=== PATIENT | female | born 1980 | race Caucasian/White ===

== ENCOUNTER 2017-03-29 17:19 | Emergency (ER) | payer SELFPAY ==
--- NOTE | 2017-03-29 18:07 | ER Document Report ---
HPI - HPI Patient complains to provider of: Toe infection Onset: Last week Onset/Duration: Gradual Quality of pain: Achy Pain Level: 2 Context: Patient presents complaining of ingrown toenail with infection for the past week. Patient states she used a metal tool and a needle to try to fix the toe. Patient denies any fever. Associated Symptoms: Other - Right great toe pain Exacerbated by: Standing, Movement, Walking Relieved by: Denies Similar symptoms previously: Yes Recently seen / treated by doctor: No - ROS ROS below otherwise negative: Yes Systems Reviewed and Negative: Yes All other systems reviewed and negative - CONSTITUTIONAL Constitutional: DENIES: Fever, Chills - MUSCULOSKELETAL Musculoskeletal: REPORTS: Extremity pain, Swelling Past Medical History - General Information source: Patient - Social History Smoking Status: Current Every Day Smoker Smoking Education Provided: Yes Frequency of alcohol use: Occasional Drug Abuse: None Occupation: None Lives with: Family Family History: Reviewed & Not Pertinent - Medical History Medical History: Negative Surgical Hx: Negative Vertical Provider Document - CONSTITUTIONAL Agree With Documented VS: Yes Exam Limitations: No Limitations General Appearance: WD/WN, No Apparent Distress - INFECTION CONTROL TRAVEL OUTSIDE OF THE [place] IN LAST 30 DAYS: No - HEENT HEENT: Atraumatic, Normocephalic - NECK Neck: Normal Inspection - RESPIRATORY Respiratory: No Respiratory Distress O2 Sat by Pulse Oximetry: 100 - CARDIOVASCULAR Pulses: Normal: Dorsalis pedis - BACK Back: Normal Inspection - MUSCULOSKELETAL/EXTREMETIES Musculoskeletal/Extremeties: MAEW, Tender - Right great toe erythema along lateral margin with purulent exudate with 1+ edema, Edema - NEURO Level of Consciousness: Awake, Alert, Appropriate Motor/Sensory: No Motor Deficit - DERM Integumentary: Warm, Dry Course - Re-evaluation Re-evalutation: 03/29/17 18:50 Controlled substance database reviewed - Vital Signs Vital signs: Temp Pulse Resp BP Pulse Ox 98.7 F 75 16 126/81 H 100 03/29/17 17:25 03/29/17 17:25 03/29/17 17:25 03/29/17 17:25 03/29/17 17:25 - Diagnostic Test Radiology reviewed: Image reviewed, Reports reviewed Discharge - Discharge Clinical Impression: Paronychia of toe Qualifiers: Laterality: right Qualified Code(s): L03.031 - Cellulitis of right toe Condition: Stable Disposition: HOME, SELF-CARE Instructions: Cephalexin ([facility]), Oral Narcotic Medication ([facility]), Paronychia ([facility] ) Additional Instructions: Return immediately for any new or worsening symptoms Followup with your primary care provider, call tomorrow to make a followup appointment Prescriptions: Cephalexin Monohydrate [Keflex 500 mg Capsule] 500 mg PO Q6H 7 Days capsule Hydrocodone/Acetaminophen [Magnolia 5-325 Tablet] 1 each PO Q4 PRN #12 tablet PRN Reason: Naproxen [Naprosyn 250 Nmg Tablet] 1 tab PO BID #14 tablet Referrals: [facility] [Provider Group] - Follow up as needed ARYAN ONEIL DPM [ACTIVE STAFF] - Follow up as needed HARIKA RUSSO DPM [ACTIVE STAFF] - Follow up as needed
--- NOTE | 2017-03-29 18:21 | RADIOLOGY REPORT (SQ) ---
EXAM DESCRIPTION: FOOT RIGHT COMPLETE COMPLETED DATE/TIME: 03/29/2017 6:10 pm REASON FOR STUDY: rt great toe pain COMPARISON: None. NUMBER OF VIEWS: Three views. TECHNIQUE: AP, lateral and oblique without weight bearing radiographic images acquired of the right foot. LIMITATIONS: None. FINDINGS: MINERALIZATION: Normal. BONES: No acute fracture or dislocation. No worrisome bone lesions. No significant osteophytes. No c ortical disruption. JOINTS: No erosions. No jorge-articular osteopenia. No chondrocalcinosis. SOFT TISSUES: No swelling. No calcifications. OTHER: No other significant finding. IMPRESSION: NEGATIVE STUDY OF THE RIGHT FOOT. NO EXPLANATION FOR PAIN. No evidence for osteomyeliti s. TECHNICAL DOCUMENTATION: JOB ID: [id number] [employer]- All Rights Reserved
[2017-03-29] MEDS ORDERED: CEPHALEXIN 500 MG CAPSULE PO ONE (18:41)
[2017-03-29] MEDS ORDERED: IBUPROFEN 800 MG TABLET PO ONE (18:49)
[2017-03-29 19:13] VITALS: BP 138/72
== END 2017-03-29 19:13 | disposition home or self-care (01) ==
LOC: ER 17:19
DX: L03.031 Cellulitis of right toe (principal); F17.200 Nicotine dependence, unspecified, uncomplicated
CPT/HCPCS: 99283

== ENCOUNTER → 2018-10-15 | Outpatient (CLI) | payer SELFPAY ==
--- NOTE | 2018-10-15 14:16 | RADIOLOGY REPORT (SQ) ---
EXAM DESCRIPTION: U/S OB 14+ TRNABD 1GES W/O DOP COMPLETED DATE/TIME: 10/15/2018 2:03 pm REASON FOR STUDY: ENCTR FOR SUPERVISION OF OTHER NORMAL , 2ND TRIMESTER (Z34.82) Z34.82 EN COUNTER FOR SUPRVSN OF NORMAL , SECOND TRI COMPARISON: None. TECHNIQUE: Static and Dynamic grayscale imaging performed of gravid uterus using transabdominal appr oach. Additional selected color Doppler and spectral images recorded. All stored on PACS. LIMITATIONS: None. FINDINGS: FETUSES SEEN:1 EGA: 22 weeks 6 days Calculated using BPD,FL,HC,AC documented on images. No discrepancy with clinica l dates. TIFFANIE: 02/12/2019 EFW: 538 grams +/-80 grams PERCENTILE: 28% ELDA: 7.1 CM LVP PLACENTA: Posterior. PRESENTATION: Cephalic. ANATOMY: HEART RATE: 160 beats per minute. FOUR CHAMBER HEART: Visualized. THREE VESSEL CORD: Yes. CORD INSERTION: Visualized. KIDNEYS AND BLADDER: Visualized. Appear normal. STOMACH: Visualized. Appears normal. SPINE: Normal as visualized. BRAIN AND LATERAL VENTRICLES: Visualized. Appear normal. OTHER: No other significant finding. MATERNAL ADNEXA: Maternal ovaries not visualized. CERVICAL LENGTH: 2.5 cm. Closed. OTHER: No other significant finding. IMPRESSION: LIVING INTRAUTERINE . ESTIMATED GESTATIONAL AGE: 22 weeks 6 days NO VISUALIZED ANOMALIES. Trimester of : Second trimester - 13 weeks 1 day to 27 weeks 6 days. TECHNICAL DOCUMENTATION: JOB ID: [id number] [employer]- All Rights Reserved Reading location - IP/workstation name: [email or web address]
== END ==
LOC: RAD 12:59
PROVIDERS: ATTEND Midwife
DX: Z34.82 Encounter for supervision of other normal pregnancy, second trimester (principal)
CPT/HCPCS: 76805

== ENCOUNTER 2018-12-24 10:38 | Outpatient (CLI) | payer MEDICAID ==
[2018-12-24 12:40] LABS: APPEARANCE,URINE CLEAR; BILIRUBIN,URINE NEGATIVE (NEGATIVE); COLOR,URINE STRAW; GLUCOSE, URINE NEGATIVE (NEGATIVE); KETONES,URINE NEGATIVE (NEGATIVE); LEUKOCYTE ESTERASE,URINE NEGATIVE (NEGATIVE); NITRITE,URINE NEGATIVE (NEGATIVE); PROTEIN,URINE NEGATIVE (NEGATIVE); URINE SPECIFIC GRAVITY 1.003; UROBILINOGEN,URINE NEGATIVE mg/dL (<2.0)
== END 2018-12-24 13:38 | disposition home or self-care (01) ==
LOC: LC 10:38
PROVIDERS: ATTEND Obstetrics & Gynecology
PROC: 4A1HXCZ Monitoring of Products of Conception, Cardiac Rate, External Approach (ICD-10-PCS; principal; 2018-12-24)
DX: O36.8330 Maternal care for abnormalities of the fetal heart rate or rhythm, third trimester, not applicable or unspecified (principal); O09.523 Supervision of elderly multigravida, third trimester; Z3A.33 33 weeks gestation of pregnancy
CPT/HCPCS: 59025; 81001

== ENCOUNTER 2019-01-07 11:34 | Outpatient (CLI) | payer MEDICAID ==
--- NOTE | 2019-01-07 12:16 | Non Stress Test Report ---
Non Stress Test Datetime Report Generated by CPN: 01/07/2019 12:16 DEMOGRAPHIC EGA NST: 35.6 EGA NST: 33.6 INDICATION Indication for Study: Ordered by Provider Indication for Study (NST) Other: AMA Indication for Study (NST) Other: AMA; BRADTCARDIA IN OFFICE MONITORING Monitor Explained: Monitor Explained; Test Explained; Patient Verbalized Understanding Monitor Explained: Monitor Explained; Test Explained; Patient Verbalized Understanding Time on Monitor: 01/07/2019 11:46 Time on Monitor: 12/24/2018 11:04 Time off Monitor: 01/07/2019 12:05 Time off Monitor: 12/24/2018 13:27 NST Duration: 19 NST Duration: 143 NST INTERVENTIONS NST Interventions: None NST Interventions: PO Hydration; Reposition Patient Physician Notified NST: Yuni Arguelles CNM Physician Notified NST: Israel Winston CNM on unit, reviewed fht BABY A: [id number] BABY A Movement : Present Movement : Present Contraction Frequency : Occasional Contraction Frequency : 0 FHR Baseline : 115 FHR Baseline : 115 Accelerations : 15X15 Accelerations : 15X15 Decelerations : None Decelerations : None Variability : Moderate 6-25bpm Variability : Moderate 6-25bpm NST Review: Meets Criteria for Reactive NST NST Review: Meets Criteria for Reactive NST NST Review and Verified By : ROB PERALTA RN NST Review and Verified By : Kizzy Leiva RN NST Results: Reactive NST Results: Reactive NST REPORT Report Trigger: Send Report
== END 2019-01-07 12:24 | disposition home or self-care (01) ==
LOC: LC 11:34
PROVIDERS: ATTEND Obstetrics & Gynecology
PROC: 4A1HXCZ Monitoring of Products of Conception, Cardiac Rate, External Approach (ICD-10-PCS; principal; 2019-01-07)
DX: O36.8330 Maternal care for abnormalities of the fetal heart rate or rhythm, third trimester, not applicable or unspecified (principal); O09.523 Supervision of elderly multigravida, third trimester; Z3A.35 35 weeks gestation of pregnancy
CPT/HCPCS: 59025

== ENCOUNTER 2019-01-13 13:49 | Outpatient (CLI) | payer MEDICAID ==
--- NOTE | 2019-01-13 15:17 | Progress Note ---
Provider Note Provider Note: Pt sent from [facility] today for monitoring d/t low baseline 90 on NST at office. She is getting NST d/t IUGR, 36.5 wks, AMA. 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 I spoke with her regarding concern for wellbeing based on FHR status at the time. C/W Dr. Warner, he would like her to go to [facility] this week, and wanted to get BPP today while here. We were told by radiology that it was going to be a 2 hour wait for BPP, that there were 5 stat Sono's before her. FHTs improved after soda, arrangements were in progress for [facility] appt this week. Pt agreed to go to [facility] for evaluation. Discharged with [facility] and precautions.
== END 2019-01-13 14:47 | disposition home or self-care (01) ==
LOC: LC 13:49
PROVIDERS: ATTEND Obstetrics & Gynecology
PROC: 4A1HXCZ Monitoring of Products of Conception, Cardiac Rate, External Approach (ICD-10-PCS; principal; 2019-01-13)
DX: O36.8330 Maternal care for abnormalities of the fetal heart rate or rhythm, third trimester, not applicable or unspecified (principal); Z3A.36 36 weeks gestation of pregnancy
CPT/HCPCS: 59025

== ENCOUNTER 2019-01-23 11:11 | Outpatient (CLI) | payer MEDICAID ==
--- NOTE | 2019-01-23 11:22 | Non Stress Test Report ---
Non Stress Test Datetime Report Generated by CPN: 01/23/2019 11:21 DEMOGRAPHIC EGA NST: 36.5 INDICATION Indication for Study (NST) Other: AMA; AUDIBLE ARRHYTHMIA VITAL SIGNS Temperature - NST: 98.1 Pulse - NST: 70 RESP - NST: 16 NBPSYS NST: 111 NBPDIA NST: 84 MONITORING Monitor Explained: Monitor Explained; Test Explained; Patient Verbalized Understanding Time on Monitor: 01/13/2019 13:49 Time off Monitor: 01/13/2019 14:47 NST Duration: 58 NST INTERVENTIONS NST Interventions: PO Hydration Physician Notified NST: DR ACEVEDO _ THOMASON, CNM REVIEWED STRIP BABY A: [id number] BABY A Movement : Present Contraction Frequency : occ FHR Baseline : 100 Accelerations : 15X15 Decelerations : None Variability : Moderate 6-25bpm NST Review: Meets Criteria for Reactive NST NST Review and Verified By : ROB PERALTA RN NST Results: Reactive NST REPORT Report Trigger: Send Report
--- NOTE | 2019-01-23 11:51 | Non Stress Test Report ---
Non Stress Test Datetime Report Generated by CPN: 01/23/2019 11:51 DEMOGRAPHIC EGA NST: 38.1 VITAL SIGNS Temperature - NST: 97.7 Pulse - NST: 64 RESP - NST: 16 NBPSYS NST: 128 NBPDIA NST: 59 MONITORING Monitor Explained: Monitor Explained; Test Explained; Patient Verbalized Understanding Time on Monitor: 01/23/2019 11:21 Time off Monitor: 01/23/2019 11:48 NST Duration: 27 NST INTERVENTIONS NST Interventions: None Physician Notified NST: P Alfonso CNM BABY A Movement : Present Contraction Frequency : 0 FHR Baseline : 110 Accelerations : 15X15 Decelerations : Early Variability : Moderate 6-25bpm NST Review: Meets Criteria for Reactive NST NST Review and Verified By : squinn NST Results: Reactive NST REPORT Report Trigger: Send Report
== END 2019-01-23 11:51 | disposition home or self-care (01) ==
LOC: LC 11:11
PROVIDERS: ATTEND Obstetrics & Gynecology
PROC: 4A1HXCZ Monitoring of Products of Conception, Cardiac Rate, External Approach (ICD-10-PCS; principal; 2019-01-23)
DX: O36.8330 Maternal care for abnormalities of the fetal heart rate or rhythm, third trimester, not applicable or unspecified (principal); O09.523 Supervision of elderly multigravida, third trimester; Z3A.38 38 weeks gestation of pregnancy
CPT/HCPCS: 59025

== ENCOUNTER 2019-02-06 21:54 | Inpatient (IN) | payer MEDICAID ==
[2019-02-06] MEDS ORDERED: OXYTOCIN/NORMAL SALINE 20 UNIT/1,000 ML RTUINJ IV PRN (22:02)
[2019-02-06] MEDS ORDERED: RINGERS SOLUTION,LACTATED 300 ML IV ONE (22:02)
[2019-02-06] MEDS ORDERED: RINGERS SOLUTION,LACTATED 1,000 ML IV PRN (22:03)
[2019-02-06] MEDS ORDERED: PENICILLIN G POTASSIUM 5,000,000 UNIT in DEXTROSE 5%-WATER 100 ML IV ONE (22:03)
[2019-02-06 22:36] LABS: ABSOLUTE EOSINOPHILS # (AUTO) 0.1 10^3/uL (0.0-0.6); ABSOLUTE LYMPHOCYTES (AUTO) 2.1 10^3/uL (0.5-4.7); ABSOLUTE MONOCYTES (AUTO) 0.7 10^3/uL (0.1-1.4); ABSOLUTE NEUT (AUTO) 5.6 10^3/uL (1.7-8.2); BASOPHILS % (AUTO) 0.5 % (0-2); EOSINOPHILS % (AUTO) 1.6 % (0-6); HEMATOCRIT 34.5 % (36.0-47.0); HEMOGLOBIN 11.8 g/dL (12.0-15.5); LYMPHOCYTES % (AUTO) 24.3 % (13-45); MEAN CORPUSCULAR HGB CONC 34.2 g/dL (32.0-36.0); MEAN CORPUSCULAR VOLUME 82 fl (80-97); MONOCYTES % (AUTO) 8.5 % (3-13); PLATELET COUNT 302 10^3/uL (150-450); RED BLOOD COUNT 4.21 10^6/uL (3.72-5.28); RED CELL DISTRIBUTION WIDTH 13.2 % (11.5-14.0); SEGMENTED NEUTROPHILS % (AUTO) 65.1 % (42-78); TOTAL CELLS COUNTED % (AUTO) 100 %; WHITE BLOOD COUNT 8.7 10^3/uL (4.0-10.5)
[2019-02-06 22:37] LABS: APPEARANCE,URINE CLEAR; BILIRUBIN,URINE NEGATIVE (NEGATIVE); COLOR,URINE YELLOW; GLUCOSE, URINE NEGATIVE (NEGATIVE); KETONES,URINE NEGATIVE (NEGATIVE); LEUKOCYTE ESTERASE,URINE NEGATIVE (NEGATIVE); NITRITE,URINE NEGATIVE (NEGATIVE); PROTEIN,URINE NEGATIVE (NEGATIVE); URINE SPECIFIC GRAVITY 1.015; UROBILINOGEN,URINE NEGATIVE mg/dL (<2.0)
[2019-02-06] MEDS ORDERED: LIDOCAINE 1% INJ-PF (10 MG/ML) 30 ML SDV ONE (22:41)
[2019-02-06] MEDS ORDERED: MISOPROSTOL 0.2 MG TABLET ONE (22:41)
[2019-02-06] MEDS ORDERED: OXYTOCIN 10 UNIT/ML VIAL ONE (22:41)
[2019-02-06] MEDS ORDERED: OXYTOCIN/NORMAL SALINE 20 UNIT/1,000 ML RTUINJ ONE (22:42)
[2019-02-06 22:52] LABS: URINE AMPHETAMINES SCREEN NEGATIVE; URINE BARBITURATES SCREEN NEGATIVE; URINE BENZODIAZEPINES SCREEN NEGATIVE; URINE COCAINE SCREEN NEGATIVE; URINE MARIJUANA (THC) SCREEN NEGATIVE; URINE METHADONE SCREEN NEGATIVE; URINE PHENCYCLIDINE SCREEN NEGATIVE
[2019-02-06] MEDS ORDERED: PENICILLIN G-K 5 MILLION UNIT VIAL ONE (23:28)
[2019-02-06] MEDS: RINGERS SOLUTION,LACTATED 1,000 ML IV PRN (23:41)
--- NOTE | 2019-02-07 02:25 | Admission Physical ---
Datetime Report Generated by CPN: 02/07/2019 02:24 CURRENT ADMISSION Chief Complaint: Scheduled Induction of Labor Indication for Induction: IUGR Indication for Induction- Other: AMA Admit Impression : Term, Intrauterine ; No Active Labor; Intact Membranes; Induction of Labor Admit Impression- Other: elevated WBC, hematuria, r/o Pyelonephritis Admit Plan: Admit to Unit; Initiate Labor Induction Protocol ALLERGIES Medication Allergies: No Known Allergies (01/13/2019) OBSTETRICAL HISTORY EDC: 02/05/2019 00:00 : 5 Para: 2 Term: 2 : 0 SAB: 1 IAB: 1 Ectopic: 0 Livin Cesareans: 0 VBACs: 0 Multiple Births: 0 Gestational Diabetes: No Rh Sensitization: No Incompetent Cervix: No QUENTIN: No Infertility: No ART Treatment: No Uterine Anomaly: No IUGR: Yes Hx Previous C/S: No Macrosomia: No Hx Loss/Stillborn: No PIH: No Hx : No Placenta Previa/Abruption: No Depression/PP Depression: No PTL/PROM: No Post Hemorrhage: No Current Procedures: Ultrasound; NST Obstetrical History Comments: G1- 1997 SAB with D_C G2- 2003 at 40 weeks, 8lbs 14oz female G3- 2009 EAB at 7 weeks G4- 2010 at 39 weeks, 7lbs 14oz, male G5- current- late PNC, ETOH use up until 20 weeks, IUGR SEE RECORDS Alcohol: Yes Alcohol Comments: frequent use up until 20 weeks Marijuana : No Cocaine: No Other Illicit Drugs: No MEDICAL HISTORY Diabetes: No Blood Transfusion: No Pulmonary Disease (Asthma, TB): No Breast Disease: No Hypertension: No Model 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 Surgery: No Heart Disease: No Hosp/Surgery: No Autoimmune Disorder: No Anesthetic Complications: No Kidney Disease: No Abnormal Pap Smear: No Neuro/Epilepsy: No Psychiatric Disorders: No Other Medical Diseases: No Hepatitis/Liver Disease: No Significant Family History: No Varicosities/Phlebitis: No Trauma/Violence : No Thyroid Dysfunction: No INFECTIOUS HISTORY Gonorrhea: No Genital Herpes: No Chlamydia: No Tuberculosis: No Syphilis: No Hepatitis: No HIV/AIDS Exposure: No Rash or Viral Illness: No HPV: No PHYSICAL EXAM General: Normal HEENT: Normal Neurologic: Normal Thyroid: Normal Heart: Normal Lungs: Normal Breast: Normal Back: Normal Abdomen: Normal Genitourinary Exam: Normal Extremities: Normal DTRs: Normal Pelvic Type: Adequate Vital Signs: Reviewed; Within Normal Limits VAGINAL EXAM Dilatation: 1 Effacement: 60 Station: -2 Contraction Comments: irregular MEMBRANES Membranes: Intact FETUS A EGA: 40.2 Monitoring: External US FHR- Baseline: 120s Variability: Moderate 6-25bpm Accelerations: 10X10 Decelerations: Variable FHR Category: Category I FHR Comments: few Admit Comment: This presented to L_D for a scheduled IOL secondary to IUGR and AMA. She reports good movement. She is GBS Pos. She was also Late PNC at 30 wks. EFW is 5%. Admits to heavy EtOH use up to 20 wks-states that she did not know that she was . Pitocin IOL is planned. her cervix is 1/60%/-2. PLANS FOR LABOR AND DELIVERY Labor and Delivery: None Pain Management: Epidural Feeding Preference: Breast Benefit of Breast Feed Discussed: Yes Circumcision: Yes INFORMED CONSENT Signature: with User ID: [email or web address]
[2019-02-07] MEDS ORDERED: PENICILLIN G-K 5 MILLION UNIT VIAL ONE (02:58)
[2019-02-07] MEDS: RINGERS SOLUTION,LACTATED 1,000 ML IV PRN (03:44)
[2019-02-07] MEDS: PENICILLIN G POTASSIUM 2,500,000 UNIT in DEXTROSE 5%-WATER 50 ML IV SCH ×5 (03:45→21:11)
[2019-02-07] MEDS ORDERED: OXYTOCIN/NORMAL SALINE 20 UNIT/1,000 ML RTUINJ IV PRN (06:22)
[2019-02-07] MEDS ORDERED: ACETAMINOPHEN WITH CODEINE #3 TABLET PO PRN ×2 (06:22)
[2019-02-07] MEDS ORDERED: BENZOCAINE/MENTHOL AEROSOL SPRAY 56 ML TOP PRN (06:22)
[2019-02-07] MEDS ORDERED: DIBUCAINE 1% OINTMENT 28 GM TP PRN (06:22)
[2019-02-07] MEDS ORDERED: ZOLPIDEM TARTRATE 5 MG TABLET PO PRN (06:22)
[2019-02-07] MEDS ORDERED: DIPH/PERTUSS(ACELL)/TETANUS VAC/PF 0.5 ML SYR (>=10YO) IM PRN (06:22)
--- NOTE | 2019-02-07 07:17 | Delivery Summary ---
Del Sum A-C Datetime Report Generated by CPN: 02/07/2019 07:17 DELIVERY PERSONNEL DELIVERY PERSONNEL: [id number] Delivery Doctor:: Radha Pretty MD Labor and Delivery Nurse:: Charla Mac RNad operations coordinator Nurse:: Karina Trimble RN Nursery Nurse:: Sylvia Hong RN Patent Prosecution Attorney/LOGISTICS COORDINATOR: Jazlyn Carlin, CARTRIDGE ASSEMBLING MACHINE ADJUSTER MATERNAL INFORMATION Delivery Anesthesia: None Medications After Delivery: Pitocin Drip 20 Units/1000ml NSS Delivery QBL: 100 Maternal Complications: Precipitous Labor (<3hrs) Provider Comments: of a viable male at 0601 w/ an OA w/ right compound hand presentation; APGARS pending; 2nd deg midline vaginal lac LABOR SUMMARY EDC: 02/05/2019 00:00 No. Babies in Womb: 1 Attempted: No Labor Anesthesia: None LABOR INFORMATION Reason for Induction: Intrauterine Growth Retardation Onset of Labor: 02/07/2019 05:12 Complete Dilatation: 02/07/2019 05:53 Oxytocin: Induction Group B Beta Strep: positive Antibiotics # of Doses: 2 Antibiotics Time of Last Dose: 0345 Name of Antibiotic Given: Penicillin Steroids Given: None Reason Steroids Not Administered: Not Applicable MEMBRANES Membranes Rupture Method: Spontaneous Rupture of Membranes: 02/07/2019 05:49 Length of Rupture (hr): 0.20 Amniotic Fluid Color: Clear Amniotic Fluid Amount: Moderate Amniotic Fluid Odor: None STAGES OF LABOR Stage 1 hr: 0 Stage 1 min: 41 Stage 2 hr: 0 Stage 2 min: 8 Stage 3 hr: 0 Stage 3 min: 5 Total Time in Labor hr: 0 Total Time in Labor min: 54 VAGINAL DELIVERY Episiotomy: None Laceration #1: Vaginal Laceration Extension #1: Second Degree Laceration Repair: Yes Laceration Repair Note: 2nd degree midline vaginal lac repaired w/2-0 Vicryl Sponge Count Correct: Yes Sharps Count Correct: Yes CSECTION DELIVERY Primary Indication: N/A Secondary Indication: N/A CSection Incidence: N/A Labor: N/A Elective: N/A CSection Incision: N/A BABY A INFORMATION Infant Delivery Date/Time: 02/07/2019 06:01 Method of Delivery: Vaginal Born in Route : No : N/A Forceps: N/A Vacuum Extraction: N/A Shoulder Dystocia : No PRESENTATION/POSITION BABY A Presentation: Cephalic Cephalic Presentation: Vertex Vertex Position: Occipital Anterior Breech Presentation: N/A PLACENTA INFORMATION BABY A Placenta Delivery Time : 02/07/2019 06:06 Placenta Method of Delivery: Spontaneous Placenta Status: Delivered SCORES BABY A Heart Rate 1 min: >100 bpm Resp Effort 1 min: Good Cry Reflex Irritability 1 min: Cough or Sneeze or Pulls Away Muscle Tone 1 min: Active Motion Color 1 min: Body [place], Extremities Blue Resuscitation Effort 1 min: Tactile Stimulation SCORE 1 MIN: 9 Heart Rate 5 min: >100 bpm Resp Effort 5 min: Good Cry Reflex Irritability 5 min: Cough or Sneeze or Pulls Away Muscle Tone 5 min: Active Motion Color 5 min: Body [place], Extremities Blue Resuscitation Effort 5 min: Tactile Stimulation SCORE 5 MIN: 9 INFANT INFORMATION BABY A Gestational Age at Delivery: 40.2 Gestational Status: Full Term- 39- 40.6 Weeks Outcome : Liveborn Condition : Stable Sex: Male IDENTIFICATION BABY A Verification Date/Time: 02/07/2019 06:30 ID Band Number: [id number] Mother's Name Verified: Yes RN Verifying : JNiebuhr,RN Additional Verifying Personnel: EJilek,RN WEIGHT/LENGTH BABY A Infant Birthweight (gm): 2719 Weight (lb): 6 Weight (oz): 0 Length (in): 20.00 Infant Length (cm): 50.80 CORD INFORMATION BABY A No. Cord Vessels: 3 Nuchal Cord : N/A Cord Blood Taken: Yes-For Storage (Mom's Blood type +) Suction: None ASSESSMENT BABY A Skin to Skin: Yes Skin to Skin Time (min): 60 BABY B INFORMATION : N/A SIGNATURES Signature: with User ID: [email or web address]
--- NOTE | 2019-02-07 07:17 | Warning Signs in Babies ---
VOD Warning Signs Datetime Report Generated by [facility]: 02/07/2019 07:17 VOD#608 -Warning Signs in Babies: Needs to be viewed. (12/24/2018 10:40:Charla Mac RN)
[2019-02-07] MEDS ORDERED: INFLUENZA QUAD (6MOS+) 2019-20 VAC 0.5 ML SYR IM ONE (09:07)
[2019-02-07] MEDS: SENNOSIDES/DOCUSATE 8.6-50 MG 1 EACH TABLET PO SCH (09:50)
[2019-02-07] MEDS: PRENATAL VITAMIN W DHA CAPSULE PO SCH (09:50)
[2019-02-07] MEDS: DOCUSATE SODIUM 100 MG CAPSULE PO SCH ×2 (09:50→18:04)
[2019-02-07] MEDS: FERROUS SULFATE 325 MG TABLET PO SCH ×2 (09:50→18:04)
[2019-02-07] MEDS ORDERED: (PENDING PHARMACY ID) (Prenatal Vits96/Iron Fum/Folic [Prenatal Tablet] 1 EACH) PO SCH (10:00)
[2019-02-07] MEDS: IBUPROFEN 800 MG TABLET PO SCH ×2 (14:33→21:12)
[2019-02-08] MEDS: IBUPROFEN 800 MG TABLET PO SCH ×3 (07:00→22:04)
[2019-02-08] MEDS: PENICILLIN G POTASSIUM 2,500,000 UNIT in DEXTROSE 5%-WATER 50 ML IV SCH ×2 (07:03→07:04)
[2019-02-08 07:35] LABS: HEMATOCRIT 30.3 % (36.0-47.0); HEMOGLOBIN 10.4 g/dL (12.0-15.5); MEAN CORPUSCULAR HEMOGLOBIN 27.9 pg (27.0-33.4); MEAN CORPUSCULAR HGB CONC 34.2 g/dL (32.0-36.0); MEAN CORPUSCULAR VOLUME 82 fl (80-97); PLATELET COUNT 257 10^3/uL (150-450); RED BLOOD COUNT 3.72 10^6/uL (3.72-5.28); RED CELL DISTRIBUTION WIDTH 12.9 % (11.5-14.0); WHITE BLOOD COUNT 9.8 10^3/uL (4.0-10.5)
[2019-02-08] MEDS: PRENATAL VITAMIN W DHA CAPSULE PO SCH (10:31)
[2019-02-08] MEDS: FERROUS SULFATE 325 MG TABLET PO SCH ×2 (10:31→18:13)
[2019-02-08] MEDS: SENNOSIDES/DOCUSATE 8.6-50 MG 1 EACH TABLET PO SCH (10:31)
[2019-02-08] MEDS: DOCUSATE SODIUM 100 MG CAPSULE PO SCH ×2 (10:31→18:14)
--- NOTE | 2019-02-08 12:16 | PDOC PROGRESS REPORT ---
Subjective-OB Progress Note for:: 02/08/19 - PP Day #1, doing well, no complaints, A+, rubellea Immune, Physical Exam (OB) Vital Signs: Temp Pulse Resp BP Pulse Ox 97.4 F 58 L 18 114/41 L 100 02/08/19 07:46 02/08/19 07:46 02/08/19 07:46 02/08/19 07:46 02/08/19 07:46 Intake & Output 02/07/19 02/08/19 02/09/19 06:59 06:59 06:59 Intake Total 506 Balance 506 Weight 76.9 kg - General General Appearance: Appears well, Alert In distress: None - PIH/Pre-Eclampsia DTR's: 1 + Clonus: Negative Headache: Absent Epigastric Pain: No Visual Changes: No - Lochia Lochia Amount: Scant < 10 ml Lochia Color: Rubra/Red - Abdomen Description: Soft Hernia Present: No Fundal Description: Firm, Midline Fundal Height: u/u - u/2 - Respiratory Respiratory Status: No respiratory distress - Abdominal Distension: No distension Tenderness: Nontender - Genitourinary Genitourinary Note: voiding - Extremities Upper extremity: Normal inspection Lower extremities: Normal inspection - Neurological Cognition: Normal Orientation: AAOx4 - Psychological Associated symptoms: Normal affect, Normal mood - Skin Skin Temperature: Warm Skin Moisture: Dry Objective-Diagnostic Laboratory: 02/08/19 07:27 02/08/19 07:27 WBC 9.8 RBC 3.72 Hgb 10.4 L Hct 30.3 L MCV 82 MCH 27.9 MCHC 34.2 RDW 12.9 Plt Count 257 Assessment and Plan(PN) - Assessment and Plan (1) (normal spontaneous vaginal delivery) Is this a current diagnosis for this admission?: Yes (2) Group beta Strep positive Is this a current diagnosis for this admission?: Yes (3) Normal course Is this a current diagnosis for this admission?: Yes Plan:: routine PP orders, ambulation encouraged - Time Spent with Patient Time with patient: Less than 15 minutes Medications reviewed and adjusted accordingly: Yes - Disposition Anticipated Discharge: Home Within: within 24 hours
[2019-02-09] MEDS: IBUPROFEN 800 MG TABLET PO SCH ×2 (06:11→13:14)
[2019-02-09 07:46] VITALS: BP 108/55
[2019-02-09] MEDS: FERROUS SULFATE 325 MG TABLET PO SCH ×2 (10:37→17:28)
[2019-02-09] MEDS: SENNOSIDES/DOCUSATE 8.6-50 MG 1 EACH TABLET PO SCH (10:37)
[2019-02-09] MEDS: PRENATAL VITAMIN W DHA CAPSULE PO SCH (10:37)
[2019-02-09] MEDS: DOCUSATE SODIUM 100 MG CAPSULE PO SCH ×2 (10:37→17:28)
--- NOTE | 2019-02-09 11:18 | PDOC DISCHARGE SUMMARY ---
Impression - Admit/DC Date/PCP Admission Date/Primary Care Provider: 02/06/19 21:54 JEFF TSE, DO Discharge Date: 02/09/19 - PP Day #2, doing well, IOL for IUGR w/ late PNC, A+. Rubella immune, - Discharge Diagnosis (1) (normal spontaneous vaginal delivery) Is this a current diagnosis for this admission?: Yes (2) Group beta Strep positive Is this a current diagnosis for this admission?: Yes (3) Normal course Is this a current diagnosis for this admission?: Yes (4) IUGR (intrauterine growth restriction) Is this a current diagnosis for this admission?: Yes (5) Poor patient attendance of care Is this a current diagnosis for this admission?: Yes - Additional Information Resuscitation Status: Full Code Discharge Diet: As Tolerated, Regular Discharge Activity: Activity As Tolerated, No Lifting Over 10 Pounds, Pelvic Rest Referrals: [facility] [Provider Group] Prescriptions: Ibuprofen [Motrin 800 mg Tablet] 800 mg PO Q8 #60 tablet Home Medications: Vits96/Iron Fum/Folic [ Tablet] 1 each PO DAILY 01/07/19 Ibuprofen [Motrin 800 mg Tablet] 800 mg PO Q8 #60 tablet 02/09/19 HPI Reason(s) for Admission: Induction of Labor Admission Note: suspected IUGR and poor PNC Procedures: NST, Ultrasound Intrapartum Procedure(s): Spontaneous Vaginal Delivery Complication(s): Laceration-Vaginal Laceration-Degree: 2nd Hospital Course Hospital Course: routine Results Laboratory Results: WBC 9.8 10^3/uL (4.0-10.5) 02/08/19 07:27 RBC 3.72 10^6/uL (3.72-5.28) 02/08/19 07:27 Hgb 10.4 g/dL (12.0-15.5) L 02/08/19 07:27 Hct 30.3 % (36.0-47.0) L 02/08/19 07:27 MCV 82 fl (80-97) 02/08/19 07:27 MCH 27.9 pg (27.0-33.4) 02/08/19 07:27 MCHC 34.2 g/dL (32.0-36.0) 02/08/19 07:27 RDW 12.9 % (11.5-14.0) 02/08/19 07:27 Plt Count 257 10^3/uL (150-450) 02/08/19 07:27 Lymph % (Auto) 24.3 % (13-45) 02/06/19 22:15 [place] % (Auto) 8.5 % (3-13) 02/06/19 22:15 Eos % (Auto) 1.6 % (0-6) 02/06/19 22:15 Baso % (Auto) 0.5 % (0-2) 02/06/19 22:15 Absolute Neuts (auto) 5.6 10^3/uL (1.7-8.2) 02/06/19 22:15 Absolute Lymphs (auto) 2.1 10^3/uL (0.5-4.7) 02/06/19 22:15 Absolute Monos (auto) 0.7 10^3/uL (0.1-1.4) 02/06/19 22:15 Absolute Eos (auto) 0.1 10^3/uL (0.0-0.6) 02/06/19 22:15 Absolute Basos (auto) 0.0 10^3/uL (0.0-0.2) 02/06/19 22:15 Seg Neutrophils % 65.1 % (42-78) 02/06/19 22:15 Urine Color YELLOW 02/06/19 22:00 Urine Appearance CLEAR 02/06/19 22:00 Urine pH 7.0 (5.0-9.0) 02/06/19 22:00 Ur Specific [place] 1.015 02/06/19 22:00 Urine Protein NEGATIVE mg/dL (NEGATIVE) 02/06/19 22:00 Urine Glucose (UA) NEGATIVE mg/dL (NEGATIVE) 02/06/19 22:00 Urine Ketones NEGATIVE mg/dL (NEGATIVE) 02/06/19 22:00 Urine Blood NEGATIVE (NEGATIVE) 02/06/19 22:00 Urine Nitrite NEGATIVE (NEGATIVE) 02/06/19 22:00 Urine Bilirubin NEGATIVE (NEGATIVE) 02/06/19 22:00 Urine Urobilinogen NEGATIVE mg/dL (<2.0) 02/06/19 22:00 Ur Leukocyte Esterase NEGATIVE (NEGATIVE) 02/06/19 22:00 Urine Ascorbic Acid NEGATIVE (NEGATIVE) 02/06/19 22:00 Urine Opiates Screen NEGATIVE 02/06/19 22:00 Urine Methadone Screen NEGATIVE 02/06/19 22:00 Ur Barbiturates Screen NEGATIVE 02/06/19 22:00 Ur Phencyclidine Scrn NEGATIVE 02/06/19 22:00 Ur Amphetamines Screen NEGATIVE 02/06/19 22:00 U Benzodiazepines Scrn NEGATIVE 02/06/19 22:00 Urine Cocaine Screen NEGATIVE 02/06/19 22:00 U Marijuana (THC) Screen NEGATIVE 02/06/19 22:00 RPR NONREACTIVE (NONREACTIVE) 02/06/19 22:15 Blood Type A POSITIVE 02/06/19 22:15 Antibody Screen NEGATIVE 02/06/19 22:15 Plan Plan of Treatment: d/c home, f/u with [facility] in 4 wks for PP check Time Spent: Less than 30 Minutes
== END 2019-02-09 17:40 | disposition home or self-care (01) | DRG 806 ==
LOC: LR 21:54 → 2S 02-07 08:50
PROVIDERS: ADMIT Obstetrics & Gynecology; ATTEND Obstetrics & Gynecology
PROC: 10E0XZZ Delivery of Products of Conception, External Approach (ICD-10-PCS; principal; 2019-02-07)
PROC: 0KQM0ZZ Repair Perineum Muscle, Open Approach (ICD-10-PCS; 2019-02-07)
PROC: 3E033VJ Introduction of Other Hormone into Peripheral Vein, Percutaneous Approach (ICD-10-PCS; 2019-02-07)
PROC: 3E02340 Introduction of Influenza Vaccine into Muscle, Percutaneous Approach (ICD-10-PCS; 2019-02-09)
DX: O36.5930 Maternal care for other known or suspected poor fetal growth, third trimester, not applicable or unspecified (principal); O71.4 Obstetric high vaginal laceration alone; Z37.0 Single live birth; O32.6XX0 Maternal care for compound presentation, not applicable or unspecified; O62.3 Precipitate labor; O99.824 Streptococcus B carrier state complicating childbirth; Z3A.40 40 weeks gestation of pregnancy; Z23 Encounter for immunization
CPT/HCPCS: 36415; 80307; 81005; 85025; 85027; 86592; 86850; 86900; 86901; 88307; 90686; J2540; J2590; J3490; J7060